=== PATIENT | female | born 1990 | race Caucasian/White ===

== ENCOUNTER 2023-05-07 01:21 | Emergency (ER) | payer OTHER ==
[2023-05-07 01:31] VITALS: BP 117/79; PULSE 95; RESP 16; TEMP 99.5; BMI 24.4
[2023-05-07] MEDS ORDERED: ONDANSETRON *ODT* 4 MG TABLET ONE (01:45)
== END 2023-05-07 02:27 | disposition home or self-care (01) ==
LOC: FER 01:21
DX: R05.9 Cough, unspecified (principal); R50.9 Fever, unspecified
CPT/HCPCS: 71046-TC-FY; 99283-25